=== PATIENT | female | born 1965 | race Caucasian/White ===

== ENCOUNTER 2016-10-20 11:27 | Emergency (ER) | payer OTHER ==
--- NOTE | 2016-10-20 12:15 | ER Document Report ---
ED Medical Screen (RME) - General Chief Complaint: Suicidal Ideation Stated Complaint: SUCIDICAL IDEATION Time Seen by Provider: 10/20/16 12:07 Notes: Patient is a 50-year-old female, past medical history bipolar, severe depression , DDD (on 2-3 Percocet a week), presents after she attempted suicide yesterday by injecting 8 bags of heroin into her right antecubital fossa. She has been on the same medications for the last 17 years, but she thinks that she is becoming more depressed over the past several months. Her is in the emergency room and wants her to get help. I have greeted and performed a rapid initial assessment of this patient. A comprehensive ED assessment and evaluation of the patient, analysis of test results and completion of the medical decision making process will be conducted by additional ED providers. TRAVEL OUTSIDE OF THE [place] IN LAST 30 DAYS: No - Related Data Allergies/Adverse Reactions: codeine Allergy (Verified 10/20/16 11:51) Past Medical History Renal/ Medical History: Denies: Hx Peritoneal Dialysis Physical Exam - Vital signs Vitals: Pulse Resp BP Pulse Ox 57 L 16 113/58 L 98 10/20/16 11:49 10/20/16 11:49 10/20/16 11:49 10/20/16 11:49 Course - Vital Signs Vital signs: Temp Pulse Resp BP Pulse Ox 97.8 F 57 L 16 113/58 L 98 10/20/16 12:00 10/20/16 11:49 10/20/16 11:49 10/20/16 11:49 10/20/16 11:49
[2016-10-20 12:52] LABS: ABSOLUTE BASOPHILS # (AUTO) 0.1 10^3/uL (0.0-0.2); ABSOLUTE EOSINOPHILS # (AUTO) 0.4 10^3/uL (0.0-0.6); ABSOLUTE LYMPHOCYTES (AUTO) 2.1 10^3/uL (0.5-4.7); ABSOLUTE MONOCYTES (AUTO) 0.6 10^3/uL (0.1-1.4); ABSOLUTE NEUT (AUTO) 5.8 10^3/uL (1.7-8.2); BASOPHILS % (AUTO) 0.7 % (0-2); HEMOGLOBIN 13.5 g/dL (12.0-15.5); HGB HCT DIFFERENCE 1.5; LYMPHOCYTES % (AUTO) 23.8 % (13-45); MEAN CORPUSCULAR HEMOGLOBIN 30.2 pg (27.0-33.4); MEAN CORPUSCULAR HGB CONC 34.5 g/dL (32.0-36.0); MEAN CORPUSCULAR VOLUME 88 fl (80-97); MONOCYTES % (AUTO) 6.8 % (3-13); RED BLOOD COUNT 4.46 10^6/uL (3.72-5.28); RED CELL DISTRIBUTION WIDTH 12.4 % (11.5-14.0); SEGMENTED NEUTROPHILS % (AUTO) 64.7 % (42-78)
[2016-10-20 12:59] LABS: APPEARANCE,URINE CLOUDY; BILIRUBIN,URINE NEGATIVE (NEGATIVE); GLUCOSE, URINE NEGATIVE (NEGATIVE); KETONES,URINE TRACE mg/dL (NEGATIVE); LEUKOCYTE ESTERASE,URINE NEGATIVE (NEGATIVE); NITRITE,URINE NEGATIVE (NEGATIVE); PROTEIN,URINE NEGATIVE (NEGATIVE); URINE SPECIFIC GRAVITY 1.031
[2016-10-20 13:04] LABS: ALANINE AMINOTRANSFERASE 24 U/L (9-52); ALBUMIN 4.5 g/dL (3.5-5.0); ALKALINE PHOSPHATASE 52 U/L (38-126); ANION GAP 12 (5-19); ASPARTATE AMINO TRANSFERASE 15 U/L (14-36); BILIRUBIN,DIRECT 0.2 mg/dL (0.0-0.4); BILIRUBIN,TOTAL 0.5 mg/dL (0.2-1.3); BLOOD UREA NITROGEN 10 mg/dL (7-20); CALCIUM 10.1 mg/dL (8.4-10.2); CARBON DIOXIDE 28 mmol/L (22-30); CHLORIDE 99 mmol/L (98-107); CREATININE RESULT 0.59 mg/dL (0.52-1.25); GLUCOSE 66 mg/dL (75-110); POTASSIUM 4.6 mmol/L (3.6-5.0); SODIUM 138.6 mmol/L (137-145); TOTAL PROTEIN 7.3 g/dL (6.3-8.2)
[2016-10-20 13:07] LABS: ALCOHOL < 10 mg/dL (NONE DETECTED)
[2016-10-20 13:15] LABS: URINE BARBITURATES SCREEN NEGATIVE; URINE METHADONE SCREEN NEGATIVE; URINE OPIATES LOW UNCONFIRMED POSITIVE; URINE PHENCYCLIDINE SCREEN NEGATIVE
--- NOTE | 2016-10-20 13:44 | EKG REPORT ---
SEVERITY:- ABNORMAL ECG - SINUS RHYTHM PROBABLE LEFT ATRIAL ABNORMALITY NONSPECIFIC T ABNORMALITIES, ANT-LAT LEADS : Confirmed by: Anaya Sarmiento 20-Oct-2016 13:43:14
--- NOTE | 2016-10-20 15:42 | ER Document Report ---
ED General - General TRAVEL OUTSIDE OF THE [place] IN LAST 30 DAYS: No - HPI Patient complains to provider of: suicidal ideation <KRYSTAL ACOSTA - Last Filed: 10/20/16 15:39> <NINO LANCASTER - Last Filed: 10/21/16 13:52> <GERMAN GARCIA - Last Filed: 10/21/16 14:17> - General Chief Complaint: Suicidal Ideation Stated Complaint: SUCIDICAL IDEATION Time Seen by Provider: 10/20/16 12:07 - HPI Notes: Patient's coming in for evaluation of suicidal ideation. Patient states she's had severe depression has a history of bipolar disease states compliant with her medications has a psychologist Dr. Bran and was referred to the ER today after a attempted suicide by overdosing on heroin. Patient denies any other medications. Patient denies any events states she feels like the medications that she is taking for her depression are not working as that she continues to become more and more depressed. Denies fevers chills nausea vomiting chest pain abdominal pain (KRYSTAL ACOSTA) - Related Data Allergies/Adverse Reactions: codeine Allergy (Verified 10/20/16 11:51) Home Medications: Current Home Medications Clonazepam [Klonopin 1 mg Tablet] 1 mg PO Q12 10/20/16 [History] Dextroamphetamine/Amphetamine [Adderall Xr 20 mg Capsule] 20 mg PO DAILY [History] Lamotrigine [Lamictal] 400 mg PO DAILY 10/20/16 [History] Sertraline HCl [Zoloft] 150 mg PO DAILY 10/20/16 [History] Trazodone HCl [Desyrel] 150 mg PO QHS 10/20/16 [History] Zolpidem Tartrate [Ambien] 20 mg PO QHS 10/20/16 [History] Past Medical History - Social History Smoking Status: Unknown if Ever Smoked Drug Abuse: Heroin, Prescription drugs Patient has suicidal ideation: Yes Patient has homicidal ideation: Yes Renal/ Medical History: Denies: Hx Peritoneal Dialysis Psychiatric Medical History: Reports: Hx Depression <KRYSTAL ACOSTA - Last Filed: 10/20/16 15:39> - Social History Family History: Reviewed & Not Pertinent <GERMAN GARCIA - Last Filed: 10/21/16 14:17> Review of Systems - Review of Systems Constitutional: No symptoms reported EENT: No symptoms reported Cardiovascular: No symptoms reported Respiratory: No symptoms reported Gastrointestinal: No symptoms reported Genitourinary: No symptoms reported Female Genitourinary: No symptoms reported Musculoskeletal: No symptoms reported Skin: No symptoms reported Hematologic/Lymphatic: No symptoms reported Neurological/Psychological: Suicidal ideation -: Yes All other systems reviewed and negative <KRYSTAL ACOSTA - Last Filed: 10/20/16 15:39> Physical Exam - Vital signs Interpretation: Normal - General General appearance: Appears well, Alert - HEENT Head: Normocephalic, Atraumatic Eyes: Normal Pupils: PERRL - Respiratory Respiratory status: No respiratory distress Chest status: Nontender Breath sounds: Normal Chest palpation: Normal - Cardiovascular Rhythm: Regular Heart sounds: Normal auscultation Murmur: No - Abdominal Inspection: Normal Distension: No distension Bowel sounds: Normal Tenderness: Nontender Organomegaly: No organomegaly - Back Back: Normal, Nontender - Extremities General upper extremity: Normal inspection, Nontender, Normal color, Normal ROM , Normal temperature General lower extremity: Normal inspection, Nontender, Normal color, Normal ROM , Normal temperature, Normal weight bearing. No: Anahi's sign - Neurological Neuro grossly intact: Yes Cognition: Normal Orientation: AAOx4 Shirley Coma Scale Eye Opening: Spontaneous Abran Coma Scale Verbal: Oriented Shirley Coma Scale Motor: Obeys Commands Abran Coma Scale Total: 15 Speech: Normal Motor strength normal: LUE, RUE, LLE, RLE Sensory: Normal - Psychological Associated symptoms: Depressed - Skin Skin Temperature: Warm Skin Moisture: Dry Skin Color: Normal <KRYSTAL ACOSTA - Last Filed: 10/20/16 15:39> Course - Laboratory Result Diagrams: 10/20/16 12:29 10/20/16 12:29 <KRYSTAL ACOSTA - Last Filed: 10/20/16 15:39> - Laboratory Result Diagrams: 10/20/16 12:29 10/20/16 12:29 <NINO LANCASTER - Last Filed: 10/21/16 13:52> - Laboratory Result Diagrams: 10/20/16 12:29 10/20/16 12:29 <GERMAN GARCIA - Last Filed: 10/21/16 14:17> - Re-evaluation Re-evalutation: 10/20/16 15:40 Patient's coming in for evaluation suicidal ideation. Patient's chem panel show a blood glucose of 66 however upon evaluation patient is currently eating a hospital provided meal. Patient's urine drug screen is positive for multiple substances benzodiazepines cocaine and opiates. Patient will be medically cleared for evaluation by our psychiatric team. (KRYSTAL ACOSTA) 10/21/16 14:17 After performing a Medical Screening Examination, I estimate there is LOW risk for any life threatening mental health issues. At this time the patient looks extremely well and has not attempted severe self harm. I have reevaluated this patient multiple times and no significant life threatening changes are noted. The patient and I have discussed the diagnosis and risks, and we agree with discharging home with close follow-up with the understanding that symptoms and presentations can change. We also discussed returning to the Emergency Department immediately if new or worsening symptoms occur. We have discussed the symptoms which are most concerning (hallucinations, thoughts or actions of self harm or harm to others) that necessitate immediate return. (GERMAN GARCIA) - Vital Signs Vital signs: Temp Pulse Resp BP Pulse Ox 98.1 F 69 18 115/71 99 10/21/16 04:53 10/21/16 04:53 10/21/16 04:53 10/21/16 04:53 10/21/16 04:53 - Laboratory Laboratory results interpreted by me: 10/20/16 10/20/16 10/20/16 12:19 12:29 12:29 Glucose 66 L POC Glucose TSH 0.38 L Urine Ketones TRACE H Urine Urobilinogen 2.0 H Urine Ascorbic Acid 20 H Salicylates < 1.0 L Acetaminophen < 10 L 10/20/16 15:25 Glucose POC Glucose 111 H TSH Urine Ketones Urine Urobilinogen Urine Ascorbic Acid Salicylates Acetaminophen Discharge <KRYSTAL ACOSTA - Last Filed: 10/20/16 15:39> <NINO LANCASTER - Last Filed: 10/21/16 13:52> <GERMAN GARCIA - Last Filed: 10/21/16 14:17> - Discharge Clinical Impression: Polysubstance abuse, Suicidal ideation Condition: Stable Disposition: HOME, SELF-CARE Additional Instructions: COCAINE ABUSE: Cocaine causes many dangerous medical problems. Problems can occur even with "usual" amounts. Cocaine affects judgement, creating a sense of invulnerability. Cocaine users often make bad decisions that seem "great" at the time. Most cocaine users eventually will be hurt by bad job performance, damaged personal relations, crime, and unsafe sexual practices. Toxic effects of cocaine can include seizures, hallucinations, delusions, high blood pressure, heart damage, or sudden . There's always the risk of a "bad batch." But heart attacks, brain hemorrhages, or cardiac arrest can occur unpredictably even with "normal" use. Injection of cocaine is risky for abscesses, endocarditis (heart infection) , pneumonia, and AIDS. Withdrawal from cocaine often causes anxiety and drug cravings. Some users become paranoid and psychotic. Many treatment programs are available, but you must make the decision to quit. Medication can be prescribed to control the symptoms of cocaine toxicity (beta blockers or benzodiazepines). Withdrawal symptoms may require tranquilizers. NARCOTIC / OPIOD ABUSE: Narcotics and opiods are pain-relieving drugs that are often abused. They are addicting. Narcotics cause euphoria, but it often takes increasing amounts to "feel good" and avoid withdrawal symptoms. Overdose of narcotics causes small pupils, coma, and decreased breathing. It's a common cause of . Purity of street narcotics is unpredictable. Injection of narcotics is risky for abscesses, endocarditis (heart infection), pneumonia, and AIDS. Withdrawal from narcotics causes goose bumps, watery mouth, sweating, nasal congestion, muscle aches, abdominal cramps, vomiting, and diarrhea. There 's often restlessness and confusion. Treatment programs are available, but you must make the decision to quit. Medication (such as clonidine) can be prescribed to control the symptoms of withdrawal. AMPHETAMINE / METHAMPHETAMINE ABUSE: Amphetamines are addicting stimulants. Amphetamines overstimulate the nervous system and give a false feeling of power and mastery. These drugs may be obtained as prescription pills for weight loss, narcolepsy, or attention- deficit disorder. More often they're bought as an illegal street drug, methamphetamine (crank, crystal, speed). Using amphetamines repeatedly can lead to serious medical problems including malnutrition, severe depression, and paranoia. It can take increasing amounts to feel good. Eventually, there will be a "burn out." When you go off amphetamines there is a period of depression that may last for weeks or even months. High doses of amphetamines can cause seizures, confusion, hallucinations, delusions, high blood pressure, muscle damage, heart damage, or sudden . Many times these deadly complications occur even with "normal" doses. Injection of amphetamines is risky for developing abscesses, endocarditis ( heart infection), pneumonia, and AIDS. Withdrawal from amphetamines often causes anxiety, depression, and drug cravings. Some users become paranoid and psychotic. There may be cramps, nausea , and vomiting. Many treatment programs are available, but you must make the decision to quit. Medication can be prescribed to control the symptoms of amphetamine toxicity (beta blockers or benzodiazepines). Withdrawal symptoms may require tranquilizers. OVERDOSE / INGESTION: You have taken more medication than you should have. After your evaluation and care, it is felt that your overdose is not likely to be harmful or of any significant consequences to you and you are being discharged. In the future, you should be careful not to take more medications than what is prescribed for you. Although your overdose does not seem to be of any danger to you at this time, if you develop any unusual or unexpected symptoms after your discharge, you should return to the Emergency Department immediately for re-evaluation. FOLLOW-UP CARE: Your recommended to follow up with her new outpatient mental health provider, Dr. Montero with [facility], within 3-5 days. It is also recommended he receive a substance abuse assessment and treatment. If you experience worsening or a significant change in your symptoms, notify the physician immediately or return to the Emergency Department at any time for re-evaluation. Forms: Return to Work
[2016-10-20 15:48] LABS: THYROID STIMULATING HORMONE 0.38 uIU/mL (0.47-4.68)
[2016-10-20] MEDS ORDERED: NICOTINE 7 MG/24 HR PATCH.TD24 TD ONE (17:46)
[2016-10-20] MEDS ORDERED: NICOTINE 21 MG/24 HR PATCH.TD24 TD ONE (18:11)
[2016-10-20] MEDS ORDERED: CLONAZEPAM 1 MG TABLET PO ONE (19:15)
[2016-10-20] MEDS ORDERED: CLONAZEPAM 1 MG TABLET PO SCH (19:15)
[2016-10-20] MEDS ORDERED: TRAZODONE HCL 50 MG TABLET PO SCH (22:00)
[2016-10-20] MEDS ORDERED: DIAZEPAM 5 MG TABLET PO ONE (22:26)
--- NOTE | 2016-10-21 09:16 | ER Document Report ---
Doctor's Note Notes: 10/21/16 09:16 As the rounding physician for our psychiatric patients, I have reviewed the chart, vitals, lab work. Patient has been examined and noted to be stable at this time . I am awaiting mental health in put. 10/21/16 10:10
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
[2016-10-21 14:24] VITALS: BP 104/57
== END 2016-10-21 14:25 | disposition home or self-care (01) ==
LOC: ER 11:27
DX: T40.1X2A Poisoning by heroin, intentional self-harm, initial encounter (principal); F14.10 Cocaine abuse, uncomplicated; F31.9 Bipolar disorder, unspecified; Z88.5 Allergy status to narcotic agent; Z79.899 Other long term (current) drug therapy
CPT/HCPCS: 36415; 80053; 80307; 81001; 82962; 84439; 84443; 85025; 93005; 93010; 99285